=== PATIENT | female | born 2000 | race African-American/Black ===

== ENCOUNTER 2022-05-07 21:41 | Emergency (ER) | payer SELFPAY ==
[2022-05-07] MEDS ORDERED: Ondansetron ODT 4 MG TAB ONE (22:27)
[2022-05-07] MEDS ORDERED: HYDROcodone/Acetaminophen 10/325 mg Tablet ONE (22:46)
[2022-05-07] MEDS ORDERED: hydrOXYzine 25 MG TAB ONE (22:46)
[2022-05-07] MEDS ORDERED: Ketorolac Tromethamine 30 MG/ML VIAL ONE (22:46)
== END 2022-05-07 22:54 | disposition home or self-care (01) ==
LOC: ERS 21:41
DX: R11.2 Nausea with vomiting, unspecified (principal)
CPT/HCPCS: 99283; J1885; Q0162